=== PATIENT | female | born 1955 | race Caucasian/White ===

== ENCOUNTER 2017-02-06 21:10 | Inpatient (IN) | payer OTHER ==
[~2017-02-06] VITALS: Ht 167.6 cm; Wt 102.3 kg
[~2017-02-06 21:10] MED LIST: ADVAIR 500/501 DISK IH; ATIVAN1 MG PO; ATIVAN2 MG PO; Advair 250/50 Diskus IH; Ativan PO; BENICAR20 MG PO; Bactrim,Septra DS 80 PO; CLEOCIN300 MG PO; CYMBALTA60 MG PO; Cymbalta PO; DELTASONE10 MG PO; EPITOL200 MG PO; FLEXERIL10 MG PO; Flonase BOTH NARES; HYDROCHLOROTHIA25 MG PO; Kenalog 0.1% Cream TP; LAMICTAL100 MG PO; LASIX40 MG PO; LaMICtal PO; Lasix PO; Nizoral 2% Cream TP; PRILOSEC20 MG PO; Proventil,Ventolin H IH; QUETIAPINE FUM100 MG PO; SEROquel PO; SPIRIVA1 INHALATI IH; Saphris SL; Tegretol PO; Tessalon Perle PO; Theo-Dur,Theocron PO; VYTORIN 10/11 TABLET PO; ZYRTEC10 M2 PO; ZYVOX600 MG PO; Zithromax PO; Zyrtec PO; predniSONE PO
[2017-02-06 21:59] LABS: EOSINOPHIL (%) 1.4 % (0-5); EOSINOPHIL COUNT 0.1 K/uL (0-0.3); HEMATOCRIT 18.7 % (36.0-46.0); IMMATURE GRANULOCYTE (%) 0.7 % (0.0-0.7); IMMATURE GRANULOCYTE COUNT 0.1 K/uL; INSTRUMENT ABS NEUTROPHIL CT 6.5 K/uL; LYMPHOCYTE COUNT 1.3 K/uL (1.0-2.8); MCH 23.3 PG (29.0-34.0); MCHC 28.3 G/DL (30.0-36.0); MCV 82.4 FL (83-99); MEAN PLAT.VOLUME 10.5 uM^3 (9.5-12.4); MONOCYTE (%) 8.5 % (3-12); MONOCYTE COUNT 0.8 K/uL (0-0.8); NEUTROPHIL (%) 73.7 % (45-76); NEUTROPHIL COUNT 6.5 K/uL (1.8-6.4); NRBC (%) 0.3 /100 WBC (0-0); PLATELET COUNT 276 K/uL (156-360); RBC DIS.WIDTH-SD 48.5 % (39-53); RED BLOOD COUNT 2.27 M/uL (3.80-5.20); WHITE BLOOD COUNT 8.8 K/uL (4.1-10.2)
[2017-02-06 22:04] LABS: CHLORIDE 95 mEq/L (99-109); POTASSIUM 3.7 mEq/L (3.7-5.4); SODIUM 138 mEq/L (136-147)
[2017-02-06 22:05] LABS: GLUCOSE 166 mg/dL (70-99)
[2017-02-06 22:07] LABS: ANION GAP 9 MEQ/L (2-14)
[2017-02-06 22:09] LABS: GFR ESTIMATE (CALCULATED) > 59 mL/min/
[2017-02-06 22:10] LABS: UREA NITROGEN (BUN) 14 mg/dL (9-23)
[2017-02-06 22:15] LABS: TROP-I INTERPRETATION NEGATIVE; TROPONIN-I 0.01 ng/mL (0.0-0.30)
[2017-02-06] MEDS ORDERED: ZYRTEC10 M3 PO (23:44)
[2017-02-06] MEDS ORDERED: CYMBALTA30 MG PO (23:45)
[2017-02-06] MEDS ORDERED: IBUPROFEN800 MG PO (23:47)
[2017-02-06] MEDS ORDERED: VENTOLIN HFA18 GM IH (23:47)
[2017-02-06] MEDS ORDERED: ADVAIR 500/501 DISK IH (23:47)
[2017-02-06] MEDS ORDERED: ALKA-SELTZER O1 EACH PO (23:48)
[2017-02-06] MEDS ORDERED: BENADRYL ALLERG25 MG PO (23:48)
[2017-02-06] MEDS ORDERED: TYLENOL EXTRA500 MG PO (23:48)
[2017-02-06] MEDS ORDERED: ZANTAC150 MG PO (23:49)
[2017-02-06] MEDS ORDERED: IRON325 M1 PO (23:49)
[2017-02-06] MEDS ORDERED: BENICAR20 MG PO (23:49)
[2017-02-06] MEDS ORDERED: AMLODIPINE BESYL5 MG PO (23:49)
[2017-02-06] MEDS ORDERED: DALIRESP500 MCG PO (23:49)
[2017-02-06] MEDS ORDERED: GAS RELIEF 8080 MG PO (23:49)
[2017-02-07] VITALS (18 sets, daily range): BP systolic 133–199; BP diastolic 62–93
[2017-02-07 05:47] LABS: METH RESISTANT S AUREUS PCR POSITIVE (NEGATIVE)
[2017-02-07 05:55] LABS: PROBE CHECK PASS
[2017-02-07 06:36] LABS: POINT-OF-CARE METER ID UU13113781
[2017-02-07 10:45] LABS: HEMATOCRIT 24.3 % (36.0-46.0); MCV 83.2 FL (83-99)
[2017-02-07 11:49] LABS: POINT-OF-CARE METER ID UU13113698
[2017-02-07 16:39] LABS: POINT-OF-CARE METER ID UU13113694
[2017-02-07 21:12] LABS: HEMATOCRIT 26.4 % (36.0-46.0); MCV 82.8 FL (83-99)
[2017-02-08 00:23] LABS: POINT-OF-CARE METER ID UU14188625
[2017-02-08 03:36] VITALS: BP 145/73; BP 159/70
[2017-02-08 06:52] LABS: HEMATOCRIT 28.8 % (36.0-46.0); MCH 24.9 PG (29.0-34.0); MCHC 29.5 G/DL (30.0-36.0); MCV 84.5 FL (83-99); MEAN PLAT.VOLUME 10.8 uM^3 (9.5-12.4); NRBC (%) 0.4 /100 WBC (0-0); PLATELET COUNT 289 K/uL (156-360); RBC DIS.WIDTH-CV 15.8 % (11.8-14.6); RBC DIS.WIDTH-SD 48.1 % (39-53); WHITE BLOOD COUNT 7.3 K/uL (4.1-10.2)
[2017-02-08 07:00] LABS: RED BLOOD COUNT 3.41 M/uL (3.80-5.20)
[2017-02-08 07:17] LABS: ANION GAP 6 MEQ/L (2-14); CHLORIDE 100 MEQ/L (99-109); GFR ESTIMATE (CALCULATED) > 59 mL/min/; SAMPLE HEMOLYSIS CHECK 0; SAMPLE ICTERIC CHECK 0; SAMPLE LIPEMIA CHECK 0; SODIUM 141 MEQ/L (136-147); UREA NITROGEN (BUN) 11 mg/dL (9-23)
[2017-02-08 07:18] LABS: GLUCOSE 110 mg/dL (70-99); POTASSIUM 4.5 MEQ/L (3.7-5.4)
[2017-02-08 07:47] VITALS: BP 142/69
[2017-02-08 11:06] VITALS: BP 191/86
[2017-02-08 13:17] LABS: INTERNAL CONTROL VALID? YES
[2017-02-08 15:53] VITALS: BP 142/70
[2017-02-08 19:42] VITALS: BP 160/74
[2017-02-08 23:43] VITALS: BP 152/67
[2017-02-09 04:14] VITALS: BP 180/79
[2017-02-09 07:55] VITALS: BP 185/80
[2017-02-09 09:02] LABS: BASOPHIL COUNT 0.1 K/uL (0-0.1); EOSINOPHIL (%) 2.5 % (0-5); EOSINOPHIL COUNT 0.2 K/uL (0-0.3); HEMATOCRIT 28.3 % (36.0-46.0); IMMATURE GRANULOCYTE (%) 0.4 % (0.0-0.7); LYMPHOCYTE COUNT 0.8 K/uL (1.0-2.8); MCH 25.7 PG (29.0-34.0); MCV 85.5 FL (83-99); MEAN PLAT.VOLUME 10.8 uM^3 (9.5-12.4); MONOCYTE (%) 10.6 % (3-12); MONOCYTE COUNT 0.7 K/uL (0-0.8); NEUTROPHIL (%) 73.4 % (45-76); PLATELET COUNT 248 K/uL (156-360); RBC DIS.WIDTH-CV 15.9 % (11.8-14.6); RBC DIS.WIDTH-SD 49.2 % (39-53); RED BLOOD COUNT 3.31 M/uL (3.80-5.20); WHITE BLOOD COUNT 6.8 K/uL (4.1-10.2)
[2017-02-09 09:31] LABS: ANION GAP 5 MEQ/L (2-14); CHLORIDE 97 MEQ/L (99-109); GFR ESTIMATE (CALCULATED) > 59 mL/min/; GLUCOSE 111 mg/dL (70-99); POTASSIUM 4.6 MEQ/L (3.7-5.4); SAMPLE HEMOLYSIS CHECK 0; SAMPLE ICTERIC CHECK 0; SAMPLE LIPEMIA CHECK 0; SODIUM 138 MEQ/L (136-147); UREA NITROGEN (BUN) 7 mg/dL (9-23)
[2017-02-09 11:23] VITALS: BP 175/77
[2017-02-09 12:47] LABS: POINT-OF-CARE METER ID UU13113694
[2017-02-09] MEDS ORDERED: PROTONIX40 MG PO (16:06)
== END 2017-02-09 17:05 | disposition home health service (06) | DRG 378 ==
LOC: EME → EDBD 21:10 → EME 21:10 → 5SOUTH 02-07 02:19 → 4EAST 02-07 02:19 → EDOF 02-07 02:19 → 4EAST 02-07 04:01 → 5SOUTH 02-07 21:22
PROVIDERS: Emergency Medicine; Hospitalist; Internal Medicine; Internal Medicine Gastroenterology
PROC: 0DB98ZX Excision of Duodenum, Via Natural or Artificial Opening Endoscopic, Diagnostic (ICD-10-PCS; principal; 2017-02-07)
PROC: 30233N1 Transfusion of Nonautologous Red Blood Cells into Peripheral Vein, Percutaneous Approach (ICD-10-PCS; principal; 2017-02-07)
PROC: 0DB68ZX Excision of Stomach, Via Natural or Artificial Opening Endoscopic, Diagnostic (ICD-10-PCS; principal; 2017-02-07)
PROC: 0DBK8ZX Excision of Ascending Colon, Via Natural or Artificial Opening Endoscopic, Diagnostic (ICD-10-PCS; 2017-02-09)
PROC: 0DBH8ZX Excision of Cecum, Via Natural or Artificial Opening Endoscopic, Diagnostic (ICD-10-PCS; 2017-02-09)
PROC: 0DBL8ZX Excision of Transverse Colon, Via Natural or Artificial Opening Endoscopic, Diagnostic (ICD-10-PCS; 2017-02-09)
PROC: 0DBM8ZX Excision of Descending Colon, Via Natural or Artificial Opening Endoscopic, Diagnostic (ICD-10-PCS; 2017-02-09)
DX: K25.4 Chronic or unspecified gastric ulcer with hemorrhage (principal); J96.11 Chronic respiratory failure with hypoxia; Z99.81 Dependence on supplemental oxygen; J44.1 Chronic obstructive pulmonary disease with (acute) exacerbation; D50.0 Iron deficiency anemia secondary to blood loss (chronic); K25.9 Gastric ulcer, unspecified as acute or chronic, without hemorrhage or perforation; I10 Essential (primary) hypertension; F17.210 Nicotine dependence, cigarettes, uncomplicated; D62 Acute posthemorrhagic anemia; D12.4 Benign neoplasm of descending colon; E78.5 Hyperlipidemia, unspecified; F31.9 Bipolar disorder, unspecified; G40.909 Epilepsy, unspecified, not intractable, without status epilepticus; D12.3 Benign neoplasm of transverse colon; G47.33 Obstructive sleep apnea (adult) (pediatric); K21.9 Gastro-esophageal reflux disease without esophagitis; K57.30 Diverticulosis of large intestine without perforation or abscess without bleeding; K64.8 Other hemorrhoids; Z68.35 Body mass index [BMI] 35.0-35.9, adult; Z82.49 Family history of ischemic heart disease and other diseases of the circulatory system; Z82.5 Family history of asthma and other chronic lower respiratory diseases; Z86.010 Personal history of colon polyps; J45.909 Unspecified asthma, uncomplicated; E66.9 Obesity, unspecified
CPT/HCPCS: 71010; 74176; 80048; 80069; 81003; 82272; 82948; 83605; 84484; 85014; 85018; 85025; 85027; 86900; 86901; 86920; 87641; 88305; 88342 TC; 93005; 94640; 94640 76; 94799; 99202; 99281; 99285; C9113; J2250; J2405; J7030; P9016; S0028

== ENCOUNTER 2017-02-25 20:08 | Emergency (ER) | payer OTHER ==
[~2017-02-25] VITALS: Ht 170.2 cm; Wt 106.5 kg
[~2017-02-25 20:08] MED LIST changes: +ALKA-SELTZER O1 EACH PO; +AMLODIPINE BESYL5 MG PO; +BENADRYL ALLERG25 MG PO; +CYMBALTA30 MG PO; +DALIRESP500 MCG PO; +GAS RELIEF 8080 MG PO; +IBUPROFEN800 MG PO; +IRON325 M1 PO; +PROTONIX40 MG PO; +TYLENOL EXTRA500 MG PO; +VENTOLIN HFA18 GM IH; +ZANTAC150 MG PO; +ZYRTEC10 M3 PO
[2017-02-25 21:06] LABS: HEMATOCRIT 24.2 % (36.0-46.0); MCH 25.8 PG (29.0-34.0); MCHC 29.3 G/DL (30.0-36.0); MEAN PLAT.VOLUME 10.7 uM^3 (9.5-12.4); PLATELET COUNT 272 K/uL (156-360); RBC DIS.WIDTH-CV 19.1 % (11.8-14.6); RBC DIS.WIDTH-SD 61.4 % (39-53); RED BLOOD COUNT 2.75 M/uL (3.80-5.20); WHITE BLOOD COUNT 7.2 K/uL (4.1-10.2)
[2017-02-25 21:16] LABS: CHLORIDE 101 mEq/L (99-109); POTASSIUM 3.9 mEq/L (3.7-5.4); SODIUM 141 mEq/L (136-147)
[2017-02-25 21:18] LABS: GLUCOSE 135 mg/dL (70-99)
[2017-02-25 21:19] LABS: ANION GAP 11 MEQ/L (2-14)
[2017-02-25 21:20] LABS: TOTAL BILIRUBIN 0.1 mg/dL (0.0-1.0)
[2017-02-25 21:22] LABS: ALKALINE PHOSPHATASE 95 IU/L (3-129); GFR ESTIMATE (CALCULATED) > 59 mL/min/
[2017-02-25 21:23] LABS: UREA NITROGEN (BUN) 15 mg/dL (9-23)
[2017-02-25 22:41] VITALS: BP 190/74
[2017-02-25 22:58] VITALS: BP 173/75
[2017-02-25 23:47] VITALS: BP 181/69
[2017-02-26 00:08] VITALS: BP 183/64
[2017-02-26 00:28] VITALS: BP 183/64
[2017-02-26 01:28] VITALS: BP 187/80
[2017-02-26 02:04] VITALS: BP 187/80
== END 2017-02-26 02:06 | disposition home or self-care (01) ==
LOC: EME 20:08
PROVIDERS: Physician Assistant
PROC: 30233N1 Transfusion of Nonautologous Red Blood Cells into Peripheral Vein, Percutaneous Approach (ICD-10-PCS; principal; 2017-02-25)
DX: D64.9 Anemia, unspecified (principal); J44.9 Chronic obstructive pulmonary disease, unspecified; K21.9 Gastro-esophageal reflux disease without esophagitis; F31.9 Bipolar disorder, unspecified; E78.5 Hyperlipidemia, unspecified; F32.9 Major depressive disorder, single episode, unspecified; I10 Essential (primary) hypertension; Z99.81 Dependence on supplemental oxygen; Z87.891 Personal history of nicotine dependence; Z90.49 Acquired absence of other specified parts of digestive tract
CPT/HCPCS: 80053; 85027; 86900; 86901; 86920; 99281; 99285; P9016

== ENCOUNTER 2017-04-03 08:57 | Emergency (ER) | payer OTHER ==
[~2017-04-03] VITALS: Ht 167.6 cm; Wt 110.0 kg
[~2017-04-03 08:57] MED LIST changes: +AFRIN,GENASAL D15 ML BOTH NARES; +DUCODYL5 MG PO; +EYE ITCH RELIEF5 ML BOTH EYES; +FLONASE16 G1 BOTH NARES; +NORVASC10 MG PO
[2017-04-03] MEDS ORDERED: LOTRISONE15 GM TP (11:18)
[2017-04-03 11:40] VITALS: BP 151/81
== END 2017-04-03 11:41 | disposition home or self-care (01) ==
LOC: EME 08:57
DX: L23.9 Allergic contact dermatitis, unspecified cause (principal); D64.9 Anemia, unspecified; E11.9 Type 2 diabetes mellitus without complications; E78.5 Hyperlipidemia, unspecified; I10 Essential (primary) hypertension; J44.9 Chronic obstructive pulmonary disease, unspecified; K21.9 Gastro-esophageal reflux disease without esophagitis; Z87.891 Personal history of nicotine dependence
CPT/HCPCS: 99281; 99284

== ENCOUNTER → 2017-04-18 | Outpatient (CLI) | payer OTHER ==
[~2017-04-18] MED LIST changes: +LOTRISONE15 GM TP
== END | disposition home or self-care (01) ==
LOC: RAD 11:44
DX: M16.11 Unilateral primary osteoarthritis, right hip (principal); M25.551 Pain in right hip
CPT/HCPCS: 73030; 73502

== ENCOUNTER → 2017-05-11 | Outpatient (CLI) | payer OTHER ==
[~2017-05-11] VITALS: Ht 167.6 cm; Wt 112.5 kg
[~2017-05-11] MED LIST changes: +MOBIC7.5 MG PO; +NON-ASPIRIN PA500 M1 PO; +PROAIR HFA8.5 GM IH; +TEGRETOL200 MG PO
[2017-05-11 10:15] LABS: BASOPHIL COUNT 0.1 K/uL (0-0.1); EOSINOPHIL (%) 2.7 % (0-5); EOSINOPHIL COUNT 0.1 K/uL (0-0.3); HEMATOCRIT 32.3 % (36.0-46.0); IMMATURE GRANULOCYTE (%) 0.8 % (0.0-0.7); INSTRUMENT ABS NEUTROPHIL CT 3.1 K/uL; LYMPHOCYTE COUNT 1.3 K/uL (1.0-2.8); MCH 29.3 PG (29.0-34.0); MCHC 31.3 G/DL (30.0-36.0); MCV 93.6 FL (83-99); MEAN PLAT.VOLUME 11.4 uM^3 (9.5-12.4); MONOCYTE (%) 9.6 % (3-12); MONOCYTE COUNT 0.5 K/uL (0-0.8); NEUTROPHIL COUNT 3.1 K/uL (1.8-6.4); PLATELET COUNT 167 K/uL (156-360); RBC DIS.WIDTH-SD 43.9 % (39-53); RED BLOOD COUNT 3.45 M/uL (3.80-5.20); WHITE BLOOD COUNT 5.1 K/uL (4.1-10.2)
[2017-05-11 10:24] LABS: PROTHROMBIN TIME 11.4 SEC (10.2-12.9)
[2017-05-11 10:26] LABS: PTT 28.3 SEC (25-37)
[2017-05-13 10:43] LABS: Flow Clinical Information NOT PROVIDED (()); Flow Specimen Type BONE MARROW (())
[2017-05-16 11:43] LABS: Flow Number of Markers 22 (()); Flow Spec Viability 98 % (())
== END | disposition home or self-care (01) ==
LOC: OPR 09:27 → EDSTATUS 10:00 → OPR 10:00
PROVIDERS: Internal Medicine Hematology & Oncology
DX: D50.9 Iron deficiency anemia, unspecified (principal); Z87.11 Personal history of peptic ulcer disease; I10 Essential (primary) hypertension; J44.9 Chronic obstructive pulmonary disease, unspecified; E78.5 Hyperlipidemia, unspecified; F32.9 Major depressive disorder, single episode, unspecified; F41.9 Anxiety disorder, unspecified; Z90.710 Acquired absence of both cervix and uterus; Z86.010 Personal history of colon polyps; Z87.891 Personal history of nicotine dependence
CPT/HCPCS: 77012; 85025; 85610; 85730; 85999; 88184 90; 88185 90; 88189 90; J3010

== ENCOUNTER 2017-08-23 15:12 | Observation (INO) | payer OTHER ==
[~2017-08-23] VITALS: Ht 170.2 cm; Wt 108.1 kg
[2017-08-23 16:04] LABS: HEMATOCRIT 33.1 % (36.0-46.0); HEMOGLOBIN 10.5 G/DL (11.9-15.5); MCH 30.4 PG (29.0-34.0); MCHC 31.7 G/DL (30.0-36.0); MCV 95.9 FL (83-99); RBC DIS.WIDTH-SD 45.8 % (39-53); RED BLOOD COUNT 3.45 M/uL (3.80-5.20); WHITE BLOOD COUNT 6.9 K/uL (4.1-10.2)
[2017-08-23 16:19] LABS: CHLORIDE 97 mEq/L (99-109); POTASSIUM 4.5 mEq/L (3.7-5.4); SODIUM 139 mEq/L (136-147)
[2017-08-23 16:21] LABS: GLUCOSE 115 mg/dL (70-99)
[2017-08-23 16:25] LABS: CREATININE 0.8 mg/dL (0.6-1.3); GFR ESTIMATE (CALCULATED) > 59 mL/min/
[2017-08-23 16:26] LABS: UREA NITROGEN (BUN) 15 mg/dL (9-23)
[2017-08-23 16:46] LABS: PLAT.SUFFICIENCY ADEQUATE; PLATELET COUNT 196 K/uL (156-360)
[2017-08-23 19:03] LABS: D-DIMER ELISA < 150.00 ng/mLDDU (<230)
[2017-08-23 20:20] LABS: VENOUS PCO2 67 mm Hg (41-51)
[2017-08-23 20:21] LABS: CARBON DIOXIDE (BICARBONATE) > 40.0 MEQ/L (20-31)
[2017-08-23 22:29] VITALS: BP 189/84
[2017-08-24 02:00] LABS: APPEARANCE SL.HAZY ((CLEAR)); BILIRUBIN NEGATIVE; BLOOD NEGATIVE; COLOR YELLOW ((YELLOW)); GLUCOSE (STRIP) >=500; KETONES 5; LEUKOCYTES NEGATIVE; NITRITE NEGATIVE; PROTEIN (STRIP) 30; SPECIFIC GRAVITY 1.021 (1.000-1.030); UROBILINOGEN 0.2 MG/DL (0.2-1.0)
[2017-08-24 02:40] LABS: BACTERIA 1+ /HPF; EPITHELIAL CELLS RARE /HPF; MUCUS TRACE /LPF; RED BLOOD CELLS 0-5 /HPF (0-5); WHITE BLOOD CELLS 0-5 /HPF (0-5)
[2017-08-24 04:27] VITALS: BP 144/71
[2017-08-24 05:45] LABS: HEMATOCRIT 31.4 % (36.0-46.0); HEMOGLOBIN 9.8 G/DL (11.9-15.5); MCH 29.8 PG (29.0-34.0); MCHC 31.2 G/DL (30.0-36.0); MCV 95.4 FL (83-99); PLATELET COUNT 197 K/uL (156-360); RBC DIS.WIDTH-CV 13.1 % (11.8-14.6); RBC DIS.WIDTH-SD 46.3 % (39-53); RED BLOOD COUNT 3.29 M/uL (3.80-5.20); WHITE BLOOD COUNT 7.1 K/uL (4.1-10.2)
[2017-08-24 06:19] LABS: CHLORIDE 97 MEQ/L (99-109); CREATININE 0.8 MG/DL (0.6-1.3); GFR ESTIMATE (CALCULATED) > 59 mL/min/; POTASSIUM 4.4 MEQ/L (3.7-5.4); SODIUM 140 MEQ/L (136-147); UREA NITROGEN (BUN) 15 mg/dL (9-23)
[2017-08-24 06:23] LABS: GLUCOSE 224 mg/dL (70-99)
[2017-08-24 09:37] VITALS: BP 193/84
[2017-08-24 11:23] VITALS: BP 156/73
[2017-08-24] MEDS ORDERED: BENICAR20 MG PO (13:56)
[2017-08-24] MEDS ORDERED: PREDNISONE10 MG PO (13:56)
== END 2017-08-24 17:16 | disposition home or self-care (01) ==
LOC: EME 15:12 → EXP 15:12 → EDOF 20:58 → 5WEST 20:58 → ENRESERV 21:00 → 5WEST 22:11
PROVIDERS: Hospitalist; Physician Assistant
DX: J44.1 Chronic obstructive pulmonary disease with (acute) exacerbation (principal); I10 Essential (primary) hypertension; E11.9 Type 2 diabetes mellitus without complications; E66.01 Morbid (severe) obesity due to excess calories; F32.9 Major depressive disorder, single episode, unspecified; Z99.81 Dependence on supplemental oxygen; F17.200 Nicotine dependence, unspecified, uncomplicated; K21.9 Gastro-esophageal reflux disease without esophagitis; F41.9 Anxiety disorder, unspecified; D64.9 Anemia, unspecified; Z90.710 Acquired absence of both cervix and uterus; Z82.49 Family history of ischemic heart disease and other diseases of the circulatory system; Z88.2 Allergy status to sulfonamides; Z83.3 Family history of diabetes mellitus
CPT/HCPCS: 71020; 80048; 81003; 82803; 83880; 85027; 85379; 87641; 93005; 94640; 94640 76; 94799; 99202; 99281; 99285; G0378; J0360; J1650; J2060; J2920; J2930